=== PATIENT | female | born 1960 | race Caucasian/White ===

== ENCOUNTER 2017-02-16 22:19 | Emergency (ER) | END 2017-02-17 04:38 | disposition home or self-care (01) | DX: K80.20 Calculus of gallbladder without cholecystitis without obstruction (principal); R11.0 Nausea; K59.00 Constipation, unspecified | CPT/HCPCS: 36415; 74176; 80053; 83690; 85025; 96374; 96375; J2270; J2405; J7040; Z7502 ==